=== PATIENT | male | born 1965 | race Caucasian/White ===

== ENCOUNTER 2016-11-02 14:51 | Inpatient (IN) | payer OTHER ==
[2016-11-02] VITALS (7 sets, daily range): BP systolic 118–155; BP diastolic 65–96
[~2016-11-02] VITALS: Ht 182.9 cm; Wt 94.1 kg
[2016-11-02 16:22] LABS: BASOPHILS % (AUTO) 0.9 % (0.0-2.0); EOSINOPHILS % (AUTO) 0.5 % (0.0-3.0); MEAN CORPUSCULAR HGB CONC 33.4 G/DL (32.0-36.0); MEAN CORPUSCULAR VOLUME 93 FL (80-99); MEAN PLATELET VOLUME 5.5 FL (6.5-10.1); NEUTROPHILS % (AUTO) 74.6 % (45.0-75.0); PLATELET COUNT 365 K/UL (150-450); RED BLOOD COUNT 5.47 M/UL (4.70-6.10); RED CELL DISTRIBUTION WIDTH 12.4 % (11.6-14.8); WHITE BLOOD COUNT 10.6 K/UL (4.8-10.8)
--- NOTE | 2016-11-02 16:41 | Diagnostic Imaging Report ---
Indication: Chest pain Technique: One view of the chest Comparison: none Findings: The heart is enlarged. There is atelectasis at the left lung base. Lungs and pleural spaces are otherwise clear. Impression: Mild cardiomegaly. Left basilar atelectasis No acute process otherwise
[2016-11-02 16:53] LABS: TROPONIN I < 0.30 ng/mL (<=0.30)
[2016-11-02 16:58] LABS: ACETAMINOPHEN < 10 ug/mL (10-30); ALANINE AMINOTRANSFERASE 25 U/L (3-41); ALBUMIN/GLOBULIN RATIO 1.3 (1.0-2.7); ALCOHOL 11 mg/dL; ANION GAP 15 (5-15); ASPARTATE AMINO TRANSFERASE 22 U/L (5-40); CALCIUM 9.6 mg/dL (8.6-10.2); CARBON DIOXIDE 27 mEQ/L (20-30); CHLORIDE 98 mEQ/L (98-107); CREATININE 1.2 mg/dL (0.7-1.2); GLOMERULAR FILTRATION RATE > 60 mL/min (>60); HEMOLYSIS 6; POTASSIUM 3.9 mEQ/L (3.4-4.9); SODIUM 140 mEQ/L (135-145); TOTAL PROTEIN 7.4 g/dL (6.6-8.7)
[2016-11-02] MEDS ORDERED: Ketorolac 30mg Inj IV ONE (17:00)
[2016-11-02 17:08] LABS: CKMB < 1.5 ng/mL (< 6.7)
[2016-11-02 18:00] LABS: INR 0.9 (0.9-1.1); PROTHROMBIN TIME 9.9 SEC (9.30-11.50)
[2016-11-02] MEDS ORDERED: Heparin 25,000u/D5W 500ml 500 ML IV SCH (18:15)
[2016-11-02] MEDS ORDERED: Heparin 5000 units/ml inj IV ONE ×2 (18:15→23:15)
[2016-11-02] MEDS ORDERED: NKM (19:15)
--- NOTE | 2016-11-02 21:21 | Emergency Room Report ---
History of Present Illness General Chief Complaint: Abdominal Pain Source: Patient Present Illness HPI 51-year-old male presents to ED for evaluation. States that he last 3 days he' s been having left-sided pain. Pain is throbbing, 6/10 starting in his left shoulder radiating across his chest. Denies any shortness of breath. Patient states that 4 days ago he took nearly 40 tablets of Ativan because he was feeling very depressed and anxious. patient states he was not trying to hurt himself. took the pills over the course of one day. Denies any suicidal his homicidal ideation at this time. No other aggravating relieving factors. Denies any other associated symptoms Allergies: Coded Allergies: CODEINE (Verified Allergy, Unknown, 11/02/16) Patient History Past Medical History: none Past Surgical History: none Pertinent Family History: none Social History: Reports: drug use, Denies: smoking, alcohol use Immunizations: UTD Reviewed Nursing Documentation: PMH: Agreed, PSxH: Agreed Nursing Documentation-PMH Past Medical History: No History, Except For Hx Cardiac Problems: No - SI attempt Review of Systems All Other Systems: negative except mentioned in HPI Physical Exam Vital Signs Date Time Temp Pulse Resp B/P (MAP) Pulse Ox O2 Delivery O2 Flow Rate FiO2 11/02/16 15:06 99.0 104 14 155/96 98 Room Air Sp02 EP Interpretation: reviewed, normal General Appearance: no apparent distress, alert, GCS 15, non-toxic Head: normocephalic, atraumatic Eyes: bilateral eye normal inspection, bilateral eye PERRL ENT: hearing grossly normal, normal pharynx, no angioedema, normal voice Neck: full range of motion, supple/symm/no masses Respiratory: chest non-tender, lungs clear, normal breath sounds, speaking full sentences Cardiovascular #1: regular rate, rhythm, no edema Cardiovascular #2: 2+ carotid (R), 2+ carotid (L), 2+ radial (R), 2+ radial (L) , 2+ dorsalis pedis (R), 2+ dorsalis pedis (L) Gastrointestinal: normal bowel sounds, non tender, soft, non-distended, no guarding, no rebound Rectal: deferred Genitourinary: normal inspection, no CVA tenderness Musculoskeletal: back normal, gait/station normal, normal range of motion, non- tender Neurologic: alert, oriented x3, responsive, motor strength/tone normal, sensory intact, speech normal Psychiatric: judgement/insight normal, memory normal, mood/affect normal, no suicidal/homicidal ideation Reflexes: 3+ bicep (R), 3+ bicep (L), 3+ tricep (R), 3+ tricep (L), 3+ knee (R) , 3+ knee (L) Skin: normal color, no rash, warm/dry, well hydrated Lymphatic: no adenopathy Medical Decision Making Diagnostic Impression: Primary Impression: Pulmonary embolism Qualified Codes: I26.99 - Other pulmonary embolism without acute cor pulmonale Additional Impression: Substance abuse ER Course Hospital Course 51 yo M presenting with chest pain, after taking multiple pills of ativan Differential diagnoses include: [place]/unstable angina, PE, bronchitis, overdose Clinical course Patient placed on stretcher. on wire mill rover. After initial history and physical I ordered labs, EKG, chest x-ray, nebulizer treatments labs reviewed- no leukocytosis, hemoglobin/hematocrit stable, electrolytes ok, troponins negative, d-dimer greater than 1000. Utox + BZs Chest x-ray- L basilar atelectasis EKG - NSR, no acute changes CT chest-PE noted Heparin bolus and drip started. Case discussed with Dr. Girard and he agreed to accept the patient to his service for further care and support I. I feel this is a highly complex case requiring extensive working including EKG/Rhythm strip, Xray/CT/US, Blood/urine lab work, repeat exams while in ED, and administration of strong opiates/narcotics for pain control, admission to hospital or close patient follow up. Diagnosis - PE, substance abuse admitted to telemetry in serious condition Labs Test 11/02/16 15:45 11/02/16 16:20 White Blood Count 10.6 K/UL (4.8-10.8) Red Blood Count 5.47 M/UL (4.70-6.10) Hemoglobin 17.0 G/DL (14.2-18.0) Hematocrit 50.8 % (42.0-52.0) Mean Corpuscular Volume 93 FL (80-99) Mean Corpuscular Hemoglobin 31.0 PG (27.0-31.0) Mean Corpuscular Hemoglobin Concent 33.4 G/DL (32.0-36.0) Red Cell Distribution Width 12.4 % (11.6-14.8) Platelet Count 365 K/UL (150-450) Mean Platelet Volume 5.5 FL (6.5-10.1) Neutrophils (%) (Auto) 74.6 % (45.0-75.0) Lymphocytes (%) (Auto) 16.0 % (20.0-45.0) Monocytes (%) (Auto) 8.0 % (1.0-10.0) Eosinophils (%) (Auto) 0.5 % (0.0-3.0) Basophils (%) (Auto) 0.9 % (0.0-2.0) Prothrombin Time 9.9 SEC (9.30-11.50) Prothromb Time International Ratio 0.9 (0.9-1.1) Activated Partial Thromboplast Time 27 SEC (23-33) D-Dimer 1088 ng/mL (<500) Sodium Level 140 mEQ/L (135-145) Potassium Level 3.9 mEQ/L (3.4-4.9) Chloride Level 98 mEQ/L (98-107) Carbon Dioxide Level 27 mEQ/L (20-30) Anion Gap 15 (5-15) Blood Urea Nitrogen 7 mg/dL (7-23) Creatinine 1.2 mg/dL (0.7-1.2) Estimat Glomerular Filtration Rate > 60 mL/min (>60) Glucose Level 132 mg/dL (74-106) Calcium Level 9.6 mg/dL (8.6-10.2) Total Bilirubin 0.9 mg/dL (0.0-1.2) Aspartate Amino Transf (AST/SGOT) 22 U/L (5-40) Alanine Aminotransferase (ALT/SGPT) 25 U/L (3-41) Alkaline Phosphatase 93 U/L (40-129) Total Creatine Kinase 48 U/L (38-174) Creatine Kinase MB < 1.5 ng/mL (< 6.7) Creatine Kinase MB Relative Index Troponin I < 0.30 ng/mL (<=0.30) Total Protein 7.4 g/dL (6.6-8.7) Albumin 4.2 g/dL (3.5-5.2) Globulin 3.2 g/dL Albumin/Globulin Ratio 1.3 (1.0-2.7) Salicylates Level < 1 mg/dL (10-30) Acetaminophen Level < 10 ug/mL (10-30) Serum Alcohol 11 mg/dL Urine Opiates Screen Negative (NEGATIVE) Urine Barbiturates Screen Negative (NEGATIVE) Phencyclidine (PCP) Screen Negative (NEGATIVE) Urine Amphetamines Screen Negative (NEGATIVE) Urine Benzodiazepines Screen Positive (NEGATIVE) Urine Cocaine Screen Negative (NEGATIVE) Urine Marijuana (THC) Screen Negative (NEGATIVE) EKG Diagnostic Results Rate: normal Rhythm: NSR ST Segments: no acute changes ASA given to the pt in ED: No Rhythm Strip Diag. Results EP Interpretation: yes Rhythm: NSR, no PVC's, no ectopy Chest X-Ray Diagnostic Results Chest X-Ray Diagnostic Results : Chest X-Ray Ordered: Yes # of Views/Limited/Complete: 1 View Indication: Chest Pain EP Interpretation: Yes Interpretation: no consolidation, no pneumothorax, no acute cardiopulmonary disease, other - L basilar atelectasis Impression: Other - L basilar atelectasis CT/MRI/US Diagnostic Results CT/MRI/US Diagnostic Results : Imaging Test Ordered: CTA Chest Impression L lower lobe PE Last Vital Signs Date Time Temp Pulse Resp B/P (MAP) Pulse Ox O2 Delivery O2 Flow Rate FiO2 11/02/16 19:58 99.1 81 14 126/72 98 Room Air Status: improved Disposition: ADMITTED INPATIENT Condition: Serious Referrals: [facility],REFERRING (PCP) MICHAEL WOODARD M.D. Nov 02, 2016 21:21
[2016-11-02] MEDS ORDERED: Zolpidem 5mg tab ORAL PRN (23:15)
[2016-11-02] MEDS: HYDROmorphone 1mg/ml Carpuject IVP PRN (23:56)
[2016-11-03] MEDS ORDERED: Heparin 25,000u/D5W 500ml 500 ML IV SCH
[2016-11-03 00:08] VITALS: BP 140/71
[2016-11-03 03:33] VITALS: BP 133/82
[2016-11-03] MEDS ORDERED: Zolpidem 5mg tab ORAL PRN (06:45)
[2016-11-03 07:13] LABS: EOSINOPHILS % (AUTO) 1.6 % (0.0-3.0); LYMPHOCYTES % (AUTO) 28.9 % (20.0-45.0); MEAN CORPUSCULAR HEMOGLOBIN 32.1 PG (27.0-31.0); MEAN CORPUSCULAR HGB CONC 34.1 G/DL (32.0-36.0); MEAN CORPUSCULAR VOLUME 94 FL (80-99); MEAN PLATELET VOLUME 5.8 FL (6.5-10.1); MONOCYTES % (AUTO) 9.9 % (1.0-10.0); NEUTROPHILS % (AUTO) 58.6 % (45.0-75.0); PLATELET COUNT 297 K/UL (150-450); RED BLOOD COUNT 4.67 M/UL (4.70-6.10); RED CELL DISTRIBUTION WIDTH 12.5 % (11.6-14.8); WHITE BLOOD COUNT 10.8 K/UL (4.8-10.8)
[2016-11-03] MEDS: Heparin 25,000u/D5W 500ml 500 ML IV SCH ×2 (07:28→07:34)
[2016-11-03 07:45] LABS: ANION GAP 10 (5-15); CALCIUM 8.7 mg/dL (8.6-10.2); CARBON DIOXIDE 27 mEQ/L (20-30); CHLORIDE 103 mEQ/L (98-107); GLOMERULAR FILTRATION RATE > 60 mL/min (>60); HEMOLYSIS 4; POTASSIUM 3.8 mEQ/L (3.4-4.9); SODIUM 140 mEQ/L (135-145)
[2016-11-03] MEDS: HYDROmorphone 1mg/ml Carpuject IVP PRN ×2 (08:29→20:17)
[2016-11-03 08:37] VITALS: BP 132/86
--- NOTE | 2016-11-03 11:42 | Diagnostic Imaging Report ---
ndication: Chest pain Technique: IV administration nonionic contrast. Spiral acquisitions obtained from the lung bases to the lung apices. Multiplanar and 3-D reconstructions were generated. Total dose length product 1083 mGycm. CTDIvol(s) 12, 63, 27 mGy. Dose reduction achieved using automated exposure control Comparison: None Findings: There is adequate opacification of the pulmonary arteries. Decreased contrast opacification is seen in the left lower lobe lateral segmental branch, suggestive of occlusion due to acute pulmonary embolus normal caliber pulmonary arteries. Normal heart size. No evidence of right ventricular dilatation. No evidence of thoracic aneurysm or dissection. Scattered pleural-based opacities in the upper lobe and superior segment left lower lobe are presumably postinflammatory. Ill-defined faint areas of atelectasis and parenchymal opacity are seen scattered throughout the left lower lobe. There is equivocal trace pleural fluid on the left. No masses The esophagus is somewhat dilated and thickwalled distally. There is a small hiatal hernia The included thyroid is unremarkable. No mediastinal or hilar mass or adenopathy. No axillary or chest wall mass or adenopathy. The bones are unremarkable. The included upper abdominal viscera are unremarkable. Impression: Decreased enhancement left lower lobe lateral segmental pulmonary artery suggestive of acute pulmonary embolus Nonspecific left lower lobe parenchymal opacities, could represent infiltrate, atelectasis, or early infarct changes. Equivocal trace left pleural effusion small sliding-type hiatal hernia. Somewhat thick walled distal esophagus could indicate reflux esophagitis, among other possibilities Mild distal esophageal dilatation, could indicate dysmotility secondary to the above This agrees with the preliminary interpretation provided overnight by Dr. Silva The CT scanner at [facility] is accredited by the [employer] and the scans are performed using protocols designed to limit radiation exposure to as low as reasonably achievable to attain images of sufficient resolution adequate for diagnostic evaluation.
[2016-11-03 12:42] VITALS: BP 127/72
[2016-11-03] MEDS ORDERED: Ketorolac 30mg Inj IV ONE (14:45)
[2016-11-03 16:15] VITALS: BP 135/79
--- NOTE | 2016-11-03 17:24 | Cardiac Electrophysiology PN ---
Subjective Subjective NSVT, PE, Ativan [id number] Objective Last 24 Hour Vital Signs Date Time Temp Pulse Resp B/P (MAP) Pulse Ox O2 Delivery O2 Flow Rate FiO2 11/03/16 16:15 98.1 81 18 135/79 99 Room Air 11/03/16 12:42 98.1 72 18 127/72 99 Room Air 11/03/16 12:00 73 11/03/16 08:37 97.9 95 18 132/86 99 Room Air 11/03/16 08:00 96 11/03/16 04:00 91 11/03/16 03:33 97.5 75 20 133/82 94 Nasal Cannula 11/03/16 00:26 98.1 11/03/16 00:08 98.1 57 20 140/71 93 Room Air 11/03/16 00:00 79 11/02/16 23:26 97.9 82 20 137/85 100 Room Air 11/02/16 22:34 96.4 82 20 124/75 98 Room Air 11/02/16 22:20 99.1 81 14 126/72 98 Room Air 11/02/16 22:19 99.1 81 14 125/78 98 Room Air 11/02/16 19:58 99.1 81 14 126/72 98 Room Air 11/02/16 19:02 91 14 118/65 98 Room Air 11/02/16 17:49 106 14 126/69 98 Room Air Intake and Output 11/03/16 11/04/16 19:00 07:00 Intake Total 526.208 ml Balance 526.208 ml Intake Oral 240 ml IV Total 286.208 ml Laboratory Tests Test 11/02/16 23:30 11/03/16 06:45 Activated Partial Thromboplast Time 87 SEC (23-33) H 90 SEC (23-33) H White Blood Count 10.8 K/UL (4.8-10.8) Red Blood Count 4.67 M/UL (4.70-6.10) L Hemoglobin 15.0 G/DL (14.2-18.0) Hematocrit 44.0 % (42.0-52.0) Mean Corpuscular Volume 94 FL (80-99) Mean Corpuscular Hemoglobin 32.1 PG (27.0-31.0) H Mean Corpuscular Hemoglobin Concent 34.1 G/DL (32.0-36.0) Red Cell Distribution Width 12.5 % (11.6-14.8) Platelet Count 297 K/UL (150-450) Mean Platelet Volume 5.8 FL (6.5-10.1) L Neutrophils (%) (Auto) 58.6 % (45.0-75.0) Lymphocytes (%) (Auto) 28.9 % (20.0-45.0) Monocytes (%) (Auto) 9.9 % (1.0-10.0) Eosinophils (%) (Auto) 1.6 % (0.0-3.0) Basophils (%) (Auto) 1.0 % (0.0-2.0) Sodium Level 140 mEQ/L (135-145) Potassium Level 3.8 mEQ/L (3.4-4.9) Chloride Level 103 mEQ/L (98-107) Carbon Dioxide Level 27 mEQ/L (20-30) Anion Gap 10 (5-15) Blood Urea Nitrogen 8 mg/dL (7-23) Creatinine 1.0 mg/dL (0.7-1.2) Estimat Glomerular Filtration Rate > 60 mL/min (>60) Glucose Level 118 mg/dL (74-106) H Calcium Level 8.7 mg/dL (8.6-10.2) ANANDA VARGAS Nov 03, 2016 17:23
--- NOTE | 2016-11-03 18:35 | Consultation ---
History of Present Illness General Chief Complaint: Abdominal Pain Present Illness HPI 51-year-old male presents to ED for evaluation. States that he last 3 days he' s been having left-sided pain. the pt stated that he has hx of depression and anxiety antonina on 60 pills of ativan. bought the pills in [place]. he also drinks. he is in the process of divorce. the pt stated that he will get help and denied si. the pt stated that the depression is situational Allergies: Coded Allergies: CODEINE (Verified Allergy, Unknown, 11/02/16) Medication History Scheduled No Known Medications* (NKM - No Known Medications*), 0 ., (Reported) Patient History Healthcare decision maker Resuscitation status Full Code Advanced Directive on File No Past Medical/Surgical History Past Medical/Surgical History: (1) Substance abuse (2) Pulmonary embolism Review of Systems Constitutional: Reports: malaise, weakness Psychiatric: Reports: prior hx, anxiety, depressed feelings Physical Exam General Appearance: no apparent distress, alert, overweight Neurologic: alert, oriented x 3, responsive, depressed affect Last 24 Hour Vital Signs Date Time Temp Pulse Resp B/P (MAP) Pulse Ox O2 Delivery O2 Flow Rate FiO2 11/03/16 16:15 98.1 81 18 135/79 99 Room Air 11/03/16 16:00 73 11/03/16 12:42 98.1 72 18 127/72 99 Room Air 11/03/16 12:00 73 11/03/16 08:37 97.9 95 18 132/86 99 Room Air 11/03/16 08:00 96 11/03/16 04:00 91 11/03/16 03:33 97.5 75 20 133/82 94 Nasal Cannula 11/03/16 00:26 98.1 11/03/16 00:08 98.1 57 20 140/71 93 Room Air 11/03/16 00:00 79 11/02/16 23:26 97.9 82 20 137/85 100 Room Air 11/02/16 22:34 96.4 82 20 124/75 98 Room Air 11/02/16 22:20 99.1 81 14 126/72 98 Room Air 11/02/16 22:19 99.1 81 14 125/78 98 Room Air 11/02/16 19:58 99.1 81 14 126/72 98 Room Air 11/02/16 19:02 91 14 118/65 98 Room Air Intake and Output 11/03/16 11/04/16 19:00 07:00 Intake Total 593.148 ml Balance 593.148 ml Intake Oral 240 ml IV Total 353.148 ml # Voids 2 Laboratory Tests Test 11/02/16 23:30 11/03/16 06:45 Activated Partial Thromboplast Time 87 SEC (23-33) H 90 SEC (23-33) H White Blood Count 10.8 K/UL (4.8-10.8) Red Blood Count 4.67 M/UL (4.70-6.10) L Hemoglobin 15.0 G/DL (14.2-18.0) Hematocrit 44.0 % (42.0-52.0) Mean Corpuscular Volume 94 FL (80-99) Mean Corpuscular Hemoglobin 32.1 PG (27.0-31.0) H Mean Corpuscular Hemoglobin Concent 34.1 G/DL (32.0-36.0) Red Cell Distribution Width 12.5 % (11.6-14.8) Platelet Count 297 K/UL (150-450) Mean Platelet Volume 5.8 FL (6.5-10.1) L Neutrophils (%) (Auto) 58.6 % (45.0-75.0) Lymphocytes (%) (Auto) 28.9 % (20.0-45.0) Monocytes (%) (Auto) 9.9 % (1.0-10.0) Eosinophils (%) (Auto) 1.6 % (0.0-3.0) Basophils (%) (Auto) 1.0 % (0.0-2.0) Sodium Level 140 mEQ/L (135-145) Potassium Level 3.8 mEQ/L (3.4-4.9) Chloride Level 103 mEQ/L (98-107) Carbon Dioxide Level 27 mEQ/L (20-30) Anion Gap 10 (5-15) Blood Urea Nitrogen 8 mg/dL (7-23) Creatinine 1.0 mg/dL (0.7-1.2) Estimat Glomerular Filtration Rate > 60 mL/min (>60) Glucose Level 118 mg/dL (74-106) H Calcium Level 8.7 mg/dL (8.6-10.2) Height (Feet): 6 Weight (Pounds): 205 Medications Current Medications Medications (Trade) Dose Ordered Sig/Patrice Route PRN Reason Start Time Stop Time Status Last Admin Dose Admin Heparin Sodium/ Dextrose 500 ml @ 33.475 mls/ hr adjust per protocol IV 11/03/16 01:00 12/03/16 00:59 11/03/16 07:34 Hydromorphone HCl (Dilaudid) 1 mg Q6H PRN IVP For Pain 11/02/16 23:15 11/09/16 23:14 11/03/16 08:29 Zolpidem Tartrate (Ambien) 5 mg HSPRN PRN ORAL Insomnia 11/03/16 06:45 11/10/16 06:44 Assessment/Plan Status: stable, progressing Bulmaro Huff M.D. Nov 03, 2016 18:35
[2016-11-03 20:00] VITALS: BP 118/77
[2016-11-04] VITALS: BP_SYST 107; BP_SYST 141; BP_DIAS 61; BP_DIAS 88
[2016-11-04] MEDS: Heparin 25,000u/D5W 500ml 500 ML IV SCH ×3 (02:03→19:26)
[2016-11-04] MEDS: HYDROmorphone 1mg/ml Carpuject IVP PRN ×4 (03:46→22:17)
[2016-11-04 04:00] VITALS: BP 129/69
[2016-11-04 07:23] LABS: TROPONIN I < 0.30 ng/mL (<=0.30)
[2016-11-04 07:37] LABS: THYROID STIMULATING HORMONE 2.41 uIU/mL (0.300-4.500)
[2016-11-04 08:00] VITALS: BP 123/62
--- NOTE | 2016-11-04 08:01 | Consultation ---
DATE OF CONSULTATION: 11/03/2016 CARDIOLOGY CONSULTATION CONSULTING PHYSICIAN: Huey Valentin M.D. REFERRING PHYSICIAN: Aron Girard M.D. ADDITIONAL REFERRING PHYSICIAN: Bryan Mercado M.D. REASON FOR CONSULTATION: Ventricular tachycardia. History Of Present Illness: The patient is a 51-year-old gentleman who came to the emergency room with three days of left-sided chest pain that was 6/10, was throbbing, left shoulder across his chest. The patient said that four days ago, he took almost 40 tablets of Ativan as he was very depressed and anxious, but he was not trying to kill himself. He denied any suicidal ideation. Subsequently, the patient was evaluated in the emergency room, underwent a CT angiogram of the chest that showed left lower lobe pulmonary embolism. The patient was admitted to telemetry floor and was started on heparin drip and a Cardiology consultation was obtained for further evaluation and management. On telemetry, the patient had four beats of nonsustained ventricular tachycardia as well. Past Medical History: Negative except for history of suicidal ideation in the past, but denies any taking medication at home. SOCIAL HISTORY: The patient smokes tobacco and used . FAMILY HISTORY: Noncontributory. Review Of Systems: Review of systems was performed and was negative other than what was mentioned in the history of present illness. PHYSICAL EXAMINATION: Vital Signs: Blood pressure is 135/79, pulse 81, respirations 18, and temperature 98.1. HEAD AND NECK: Showed no JVD. LUNGS: Clear. CARDIOVASCULAR: Shows regular S1 and S2 with no gallop or murmur. ABDOMEN: Soft. EXTREMITIES: No pitting edema. Laboratory and diagnostic Data: EKG showed normal sinus rhythm, normal electrocardiogram. White count 10.8, hemoglobin 15, hematocrit 44, and platelet of 297,000. Sodium 140, potassium 3.8, BUN , creatinine 1, and glucose of 118. Urine toxicology is positive for benzodiazepines. INR is 0.9. D-dimer is 1088. ASSESSMENT AND PLAN: 1. Chest pain, elevated D-dimer of more than 1000. A chest CT angiogram confirmed acute pulmonary embolus of left lower lobe. The patient remains on intravenous heparin. I will get a 2D echocardiogram to evaluate for ejection fraction and wall motion abnormality and repeat the troponin as well. 2. Anxiety. The patient took 40 tablets of Ativan, he denies suicidal ideation. Thank you very much, Dr. Mercado, for allowing me to participate in the care of this patient. Please do not hesitate to contact me if you have any questions regarding my evaluation. Huey Valentin M.D. DR: GISELLE JOB#: [id number] CC:
--- NOTE | 2016-11-04 11:17 | General Progress Note ---
Assessment/Plan Status: stable, progressing Assessment/Plan MDD, recurrent -cont current meds Subjective Neurologic/Psychiatric: Reports: anxiety, depressed, emotional problems Allergies: Coded Allergies: CODEINE (Verified Allergy, Unknown, 11/02/16) Subjective the pt is doing better, still depressed situational divorce related. the pt is calm not suicidal Objective Last 24 Hour Vital Signs Date Time Temp Pulse Resp B/P (MAP) Pulse Ox O2 Delivery O2 Flow Rate FiO2 11/04/16 08:00 97.8 94 21 123/62 95 Room Air 11/04/16 04:00 79 11/04/16 04:00 97.3 79 22 129/69 97 Room Air 11/04/16 00:00 97.9 59 21 141/88 98 Room Air 11/04/16 00:00 74 11/04/16 00:00 97.0 68 21 107/61 93 Room Air 11/03/16 20:00 97.5 71 20 118/77 98 Room Air 11/03/16 20:00 72 11/03/16 16:15 98.1 81 18 135/79 99 Room Air 11/03/16 16:00 73 11/03/16 12:42 98.1 72 18 127/72 99 Room Air 11/03/16 12:00 73 Intake and Output 11/04/16 11/05/16 19:00 07:00 Intake Total 33.475 ml Balance 33.475 ml IV Total 33.475 ml Laboratory Tests 11/04/16 04:00: Activated Partial Thromboplast Time 72H, Troponin I < 0.30, Pro-B-Type Natriuretic Peptide 90, Thyroid Stimulating Hormone (TSH) 2.410, Free Thyroxine 1.27 Height (Feet): 6 Weight (Pounds): 204 General Appearance: no apparent distress, alert, overweight Neurologic: alert, oriented x 3, responsive, depressed affect Bulmaro Huff M.D. Nov 04, 2016 11:17
[2016-11-04 12:00] VITALS: BP 134/78
--- NOTE | 2016-11-04 12:14 | Cardiology Report ---
APPROVED REPORT EXAM: Two-dimensional and M-mode echocardiogram with Doppler and color Doppler. INDICATION Thrombosis M-Mode DIMENSIONS IVSd1.0 (0.7-1.1cm)Left Atrium (MM)3.6 (1.6-4.0cm) LVDd5.0 (3.5-5.6cm)Aortic Root3.0 (2.0-3.7cm) PWd1.0 (0.7-1.1cm)Aortic Cusp Exc.1.9 (1.5-2.0cm) LVDs3.2 (2.5-4.0cm) PWs1.6 cm Technically difficult study due to poor acoustical windows. Normal left ventricular chamber size, systolic function and wall motion. Left ventricular ejection fraction estimated to be 55-60%. No evidence of left ventricular hypertrophy. Small posterior pericardial effusion. All other cardiac chamber sizes are within normal limits. Focal aortic valve sclerosis with adequate cusp excursion. Normal mitral valve leaflets with normal excursion. Mild mitral annulus and aortic root calcification. Pulmonic valve not well visualized. Normal tricuspid valve structure. IVC is normal in size and collapsible with respiration. A color flow and spectral Doppler study was performed and revealed: No aortic regurgitation. No mitral regurgitation. Normal mitral diastolic function. No tricuspid regurgitation. Normal mitral inflow velocity pattern
--- NOTE | 2016-11-04 15:22 | Cardiac Electrophysiology PN ---
Assessment/Plan Assessment/Plan 1. Chest pain, elevated D. dimer of more than 1000. Chest CT angiogram confirmed acute pulmonary embolus of left lower lobe. On intravenous heparin. 2D echocardiogram EF 55% 2. Anxiety. Per Dr Daria BOLAÑOS RN Subjective Subjective Alert in NAD. On heparin drip Objective Last 24 Hour Vital Signs Date Time Temp Pulse Resp B/P (MAP) Pulse Ox O2 Delivery O2 Flow Rate FiO2 11/04/16 12:00 97.8 70 20 134/78 99 Room Air 11/04/16 08:00 97.8 94 21 123/62 95 Room Air 11/04/16 04:00 79 11/04/16 04:00 97.3 79 22 129/69 97 Room Air 11/04/16 00:00 97.9 59 21 141/88 98 Room Air 11/04/16 00:00 74 11/04/16 00:00 97.0 68 21 107/61 93 Room Air 11/03/16 20:00 97.5 71 20 118/77 98 Room Air 11/03/16 20:00 72 11/03/16 16:15 98.1 81 18 135/79 99 Room Air 11/03/16 16:00 73 Intake and Output 11/04/16 11/05/16 19:00 07:00 Intake Total 33.475 ml Balance 33.475 ml IV Total 33.475 ml Laboratory Tests Test 11/04/16 04:00 Activated Partial Thromboplast Time 72 SEC (23-33) H Troponin I < 0.30 ng/mL (<=0.30) Pro-B-Type Natriuretic Peptide 90 pg/mL (0-125) Thyroid Stimulating Hormone (TSH) 2.410 uIU/mL (0.300-4.500) Free Thyroxine 1.27 ng/dL (0.86-1.85) Objective HEAD AND NECK: Showed no JVD. LUNGS: Clear. CARDIOVASCULAR: Regular S1 and S2 with no gallop or murmur. ABDOMEN: Soft. EXTREMITIES: No pitting edema. ANANDA VARGAS Nov 04, 2016 15:22
[2016-11-04 16:00] VITALS: BP 135/82
[2016-11-04 16:19] LABS: PROTHROMBIN TIME 10.4 SEC (9.30-11.50)
[2016-11-04] MEDS ORDERED: Warfarin Sodium 10mg ORAL ONE (17:00)
[2016-11-04 20:00] VITALS: BP 131/77
[2016-11-05] VITALS: BP 124/71
--- NOTE | 2016-11-05 03:00 | History and Physical Report ---
DATE OF ADMISSION: 11/02/2016 History of present illness: This is a 51 years old male who came to the emergency room with short of breath and chest pain. The patient was found to have abnormal EKG as well as also found PE and the patient was admitted on telemetry bed. The patient currently is alert and awake. He wanted to sign AMA earlier this morning because financial, but I discussed with the patient and he agreed to stay. The patient is currently alert and awake. No risk factor. PAST MEDICAL HISTORY: None known. MEDICATIONS: None known. SOCIAL HISTORY: The patient drinks alcohol and beer almost everyday. Denies any smoking. REVIEW OF SYSTEMS: The patient claims he has been traveling for probable about 2-1/2 hours flight about a week ago. He has no fever. No chills. No chest pain. No palpitation. PHYSICAL EXAMINATION: GENERAL: This is a young healthy male who is currently awake. Vital signs: Blood pressure is 120/70, pulse 60, respirations 18, and no fever. SKIN: Good skin turgor. HEENT: NAD. CHEST: Bilaterally clear. CARDIOVASCULAR: Regular rhythm. No gallop. No murmur. ABDOMEN: Soft. Positive bowel sounds. Nontender. EXTREMITIES: No swelling and no tender. Calf tenderness. GENITOURINARY: Deferred. LABORATORY DATA: PT/INR is normal. PTT is high. ASSESSMENT AND PLAN: 1. Acute pulmonary embolism. We will admit him on telemetry bed. Continue heparin drip. We will add Coumadin 10 mg. Cardiology is on the case. We will also consider pulmonary consult and monitor PT/INR. Risks versus benefits are explained to the patient for Coumadin and heparin and the patient understood. Devon Girard M.D. DR: John JOB#: [id number] CC:
[2016-11-05 04:00] VITALS: BP 112/73
[2016-11-05 04:33] LABS: PROTHROMBIN TIME 10.7 SEC (9.30-11.50)
[2016-11-05] MEDS: Heparin 25,000u/D5W 500ml 500 ML IV SCH ×2 (05:05→10:36)
[2016-11-05] MEDS: Hydromorphone 0.5mg/0.5ml inj IVP PRN ×3 (07:43→19:58)
[2016-11-05 08:00] VITALS: BP 124/78
[2016-11-05 12:00] VITALS: BP 128/65
--- NOTE | 2016-11-05 15:01 | Cardiac Electrophysiology PN ---
Assessment/Plan Assessment/Plan 1. Chest pain, elevated D. dimer of more than 1000. Chest CT angiogram confirmed acute pulmonary embolus of left lower lobe. On intravenous heparin and coumadin per Rx 2D echocardiogram EF 55% 2. Anxiety. Per Dr Huff 3. On prn Dilaudid for pain DW RN Subjective Subjective Feeling better. On heparin drip. Getting prn Dilaudid q 6 hr Objective Last 24 Hour Vital Signs Date Time Temp Pulse Resp B/P (MAP) Pulse Ox O2 Delivery O2 Flow Rate FiO2 11/05/16 12:00 60 11/05/16 12:00 97.7 62 18 128/65 99 Room Air 11/05/16 08:00 68 11/05/16 08:00 98.8 64 18 124/78 95 Room Air 11/05/16 04:00 65 11/05/16 04:00 97.3 63 20 112/73 95 Room Air 11/05/16 00:00 97.9 66 20 124/71 94 Room Air 11/05/16 00:00 72 11/04/16 20:00 98.2 72 21 131/77 98 Room Air 11/04/16 20:00 74 11/04/16 16:00 97.7 75 20 135/82 97 Room Air 11/04/16 16:00 81 Intake and Output 11/05/16 11/06/16 19:00 07:00 Intake Total 834.325 ml Balance 834.325 ml Intake Oral 600 ml IV Total 234.325 ml # Voids 2 # Bowel Movements 1 Laboratory Tests Test 11/04/16 15:58 11/05/16 03:50 Prothrombin Time 10.4 SEC (9.30-11.50) 10.7 SEC (9.30-11.50) Prothromb Time International Ratio 1.0 (0.9-1.1) 1.0 (0.9-1.1) Activated Partial Thromboplast Time 79 SEC (23-33) H Objective HEAD AND NECK: Showed no JVD. LUNGS: Clear. CARDIOVASCULAR: Regular S1 and S2 with no gallop or murmur. ABDOMEN: Soft. EXTREMITIES: No pitting edema. ANANDA VARGAS Nov 05, 2016 15:01
[2016-11-05 16:19] VITALS: BP 105/66
[2016-11-05] MEDS ORDERED: Warfarin Sodium 10mg ORAL ONE (17:00)
[2016-11-05 20:00] VITALS: BP 124/65
[2016-11-06] VITALS: BP 110/64
[2016-11-06] MEDS: Heparin 25,000u/D5W 500ml 500 ML IV SCH ×2 (02:41→06:07)
[2016-11-06] MEDS: Hydromorphone 0.5mg/0.5ml inj IVP PRN (02:56)
[2016-11-06 04:00] VITALS: BP 101/63
[2016-11-06 05:29] LABS: INR 1.3 (0.9-1.1); PROTHROMBIN TIME 13.5 SEC (9.30-11.50)
--- NOTE | 2016-11-06 05:47 | Progress Note ---
DATE: 11/05/2016 Subjective: This is a young 51 years old male, who came to the emergency room for PE. The patient is currently alert and he is doing better. No distress. No shortness of breath. No chest pain. OBJECTIVE: VITAL SIGNS: Afebrile. CHEST: Bilaterally clear. CARDIOVASCULAR: Regular rhythm. No gallop or murmur. ABDOMEN: Soft. EXTREMITIES: CCE. NEUROLOGICAL: No focal deficit. Assessment And Plan: Pulmonary embolism. We will continue heparin. We will continue closely monitor of INR. Discuss with his Pulmonary. Continue supportive treatment. Devon Girard M.D. DR: GEORGES JOB#: [id number] CC:
[2016-11-06 08:00] VITALS: BP 125/69
[2016-11-06 12:00] VITALS: BP 121/69
[2016-11-06 16:00] VITALS: BP 128/76
--- NOTE | 2016-11-06 16:45 | General Progress Note ---
Assessment/Plan Status: stable, progressing Assessment/Plan MDD, recurrent -cont current meds Subjective Date patient seen: Nov 05, 2016 Allergies: Coded Allergies: CODEINE (Verified Allergy, Unknown, 11/02/16) Subjective the pt is doing better.. the pt is calm not suicidal Objective Last 24 Hour Vital Signs Date Time Temp Pulse Resp B/P (MAP) Pulse Ox O2 Delivery O2 Flow Rate FiO2 11/06/16 16:00 98.0 70 21 128/76 96 Room Air 11/06/16 12:00 97.5 79 21 121/69 96 Room Air 11/06/16 12:00 75 11/06/16 08:00 69 11/06/16 08:00 97.2 78 19 125/69 96 Room Air 11/06/16 04:00 98.2 60 20 101/63 97 Room Air 11/06/16 04:00 66 11/06/16 00:00 97.9 67 20 110/64 98 Room Air 11/06/16 00:00 74 11/05/16 20:00 98.1 75 20 124/65 96 Room Air 11/05/16 20:00 78 Intake and Output 11/06/16 11/07/16 19:00 07:00 Intake Total 334.750 ml Balance 334.750 ml IV Total 334.750 ml Laboratory Tests 11/06/16 04:00: Prothrombin Time 13.5H, Prothromb Time International Ratio 1.3H, Activated Partial Thromboplast Time 76H Height (Feet): 6 Weight (Pounds): 207 General Appearance: no apparent distress, alert, overweight Neurologic: alert, oriented x 3, responsive, depressed affect Bulmaro Huff M.D. Nov 06, 2016 16:45
[2016-11-06] MEDS ORDERED: Warfarin Sodium 10mg ORAL ONE (17:00)
[2016-11-06] MEDS ORDERED: LOVENOX10 M1 SUBQ (17:12)
[2016-11-06] MEDS ORDERED: COUMADIN5 MG ORAL (17:13)
--- NOTE | 2016-11-07 16:10 | Discharge Summary ---
Discharge Summary Hospital Course Date of Admission Nov 02, 2016 at 18:27 Date of Discharge Nov 06, 2016 at 17:45 Admitting Diagnosis PULMONARY EMBOLISM HPI Gerald Carter is a 51 year old male who was admitted on Nov 02, 2016 at 18:27 for Pulmonary Embolism Hospital Course dc summary #[id number] Discharge Medications Continued Medications: Enoxaparin* (Lovenox*) 60 Mg/0.6 Ml Inj 60 MG SUBQ EVERY 12 HOURS for 10 Days, #60 EA 0 Refills Warfarin Sod* (Coumadin*) 5 Mg Tablet 5 MG ORAL BEDTIME, TAB Discharge Condition Upon Discharge: stable Discharge Disposition Patient was discharged to Home (01) Discharge Diagnoses: Discharge Instructions Discharge Instructions Special Instructions I have been assigned to complete a D/C Summary on this account. I was not involved in the patient management Katarzyna Murphy NP (Vanchtein) Nov 07, 2016 16:10
--- NOTE | 2016-11-07 19:31 | General Progress Note ---
Assessment/Plan Status: stable, progressing Assessment/Plan MDD, recurrent -cont current meds Subjective Date patient seen: Nov 06, 2016 Constitutional: Reports: malaise, weakness Allergies: Coded Allergies: CODEINE (Verified Allergy, Unknown, 11/02/16) Subjective the pt is doing better.. the pt is calm not suicidal Objective Height (Feet): 6 Weight (Pounds): 207 General Appearance: no apparent distress, alert, overweight Neurologic: alert, oriented x 3, responsive, depressed affect Bulmaro Huff M.D. Nov 07, 2016 19:31
--- NOTE | 2016-11-08 04:30 | Discharge Summary 2 SIG ---
DATE OF ADMISSION: 11/02/2016 DATE OF DISCHARGE: 11/06/2016 Reason For Admission: 51-year-old male with history of substance abuse presented at this time with a complaint of left-sided pain. He reported pain as a throbbing 6/10 on a scale 1 to 10, started on the left shoulder and radiating across his chest. He denied shortness of breath. He also reported feeling depressed and anxious. He admitted to taking many Ativan pills. At the same time, the patient stated that he was not trying to hurt himself, he just took the pills to relieve his anxiety. Again, he denied any suicidal or homicidal ideation. Workup in the emergency room revealed mild tachycardia and slightly elevated blood pressure. Pulse oximetry was stable on room air. Respiratory rate -14. Chest x-ray revealed left base atelectasis. No leukocytosis. Stable hemoglobin and hematocrit. Stable electrolytes. EKG revealed normal sinus rhythm. No acute changes. Troponin was negative. Elevated D-dimer -1088. Subsequently CTA of the chest was done, which revealed decreased enhancement of the left lower lobe lateral segmental pulmonary artery suggestive of acute pulmonary emboli. The patient was subsequently started on heparin bolus and then heparin drip. Patient was admitted for further management. ADMITTING DIAGNOSES: 1. Acute pulmonary embolism left lower lobe. 2. Chest pain. 3. Elevated D-dimer. 4. Substance abuse. Hospital Course: The patient was admitted to telemetry floor. The patient was started on heparin drip after heparin bolus and Coumadin to bridge to therapeutic INR between 2 and 3. Cardiology and psychiatric consults were requested. Comic Book Writer had seen and evaluated the patient. Comic Book Writer concurred with the treatment for PE and ordered another troponin. Serial troponin were negative. EKG revealed sinus rhythm. No acute ischemic changes. Subsequently, the patient was ruled out for acute RI per protocol. TSH was within normal limits. All electrolytes and renal parameters were within normal limits. Echocardiogram revealed ejection fraction of 55% to 60% . No evidence of left ventricular hypertrophy and no evidence of mitral or aortic regurgitation. No further episode of chest pain. Pain management was provided as needed. INR was still subtherapeutic on day of discharge -1.3. Heparin switched to Lovenox twice a day along with the Coumadin. Prescription provided. The patient was taught how to self administer Lovenox. The patient will follow up with the primary medical doctor to check INR. Psychiatrist seen and evaluated the patient. Psychiatrist stated that the patient had major depressive disorder, recurrent and recommended continue current psychiatric medication regimen. The patient was stable for discharge. FINAL DIAGNOSES: 1. Acute pulmonary emboli left lower lobe. 2. Chest pain, resolved, likely related to pulmonary embolism. 3. Elevated D-dimer. 4. Substance abuse. 5. Major depressive disorder, recurrent. DISCHARGE MEDICATIONS: See medication reconciliation list. Discharge Instructions: The patient was discharged home. Follow up with the primary medical doctor for management of INR. Devon Girard M.D. I have been assigned to dictate discharge summary on this account and I was not involved in the patient's management. Katarzyna LaytonArnot Ogden Medical CenterAugie NManuelPManuel DR: VERONICA JOB#: [id number] CC: YENNY
--- NOTE | 2016-11-12 02:11 | Cardiology Report ---
APPROVED REPORT EKG Measurement Heart [id number] Normal sinus rhythm Normal ECG
== END 2016-11-06 17:45 | disposition home or self-care (01) | DRG 176 ==
LOC: EMR 15:50 → EDBEDREQ 17:37 → 2E 18:27 → EDBEDREQ 20:20 → 2E 11-04 12:43
DX: I26.99 Other pulmonary embolism without acute cor pulmonale (principal); F32.9 Major depressive disorder, single episode, unspecified; F19.10 Other psychoactive substance abuse, uncomplicated; Z88.6 Allergy status to analgesic agent; R00.0 Tachycardia, unspecified; F17.200 Nicotine dependence, unspecified, uncomplicated; F41.9 Anxiety disorder, unspecified
CPT/HCPCS: 36415; 71010; 71275; 80048; 80053; 80300; 80329; 82550; 82553; 83880; 84439; 84443; 84484; 85025; 85379; 85610; 85730; 86850; 86900; 86901; 93005; 93306; 99285